=== PATIENT | female | born 1955 | race Caucasian/White ===

== ENCOUNTER → 2022-10-10 12:31 | Outpatient (CLI) | payer MEDICARE, SELFPAY ==
--- NOTE | ~2022-10-10 | DEXA_ITS ---
Bone Density Report Name: CHANDLER FIGUEROA Age: 66 Sex: Female Ethnicity: White Date of : 1955 Indication: postmenopausal; screening for osteoporosis; height loss; prior fracture; hysterectomy; Referring Provider: KEATON NAVARRO M.D. Study: Bone densitometry was performed. Exam Date: October 10, 2022 Accession number: [id number] Bone Density: Region BMD T-score Z-score Classification AP Spine (L1-L4) 1.100 0.5 2.3 Normal Femoral Neck (Left) 0.728 -1.1 0.5 Osteopenia Total Hip (Left) 0.784 -1.3 0.0 Osteopenia Femoral Neck (Right) 0.730 -1.1 0.5 Osteopenia Total Hip (Right) 0.817 -1.0 0.3 Normal Total Hip Mean 0.801 -1.2 0.2 Osteopenia World Health Organization criteria for BMD impression classify patients as: Normal (T-score at or above -1.0), Osteopenia (T-score between -1.0 and -2.5), or Osteoporosis (T-score at or below -2.5). 10-year Fracture Risk: FRAX not reported because: Prior hip or vertebral fracture Treated for osteoporosis Clinical Information Provided by Patient: Have had a previous hip or vertebral fracture Has had a low trauma fracture Is being treated for osteoporosis Has used the following medications: Evista (i.e. raloxifene), Vitamin D, Calcium, multivit Has the following medical conditions: Hysterectomy, IBS, no recent treatment Patient maximum height was 69 Menopause Age: 43 Drinks caffeinated beverages Onset of menses at age 14 Number of children 2 Impression: The patient has low bone mass, based on the Left Total Hip T-score. The patient has risk factors, including: previous fracture. Discussion: It is important to ask patients whether they are taking their medications and to encourage continued and appropriate compliance with their osteoporosis therapies to reduce fracture risk. It is also important to review their risk factors and encourage appropriate calcium and vitamin D intakes, exercise, fall prevention and other lifestyle measures. Follow-Up: Consider a repeat BMD and Vertebral Fracture Assessment (VFA) exam in 2 years or sooner if medically necessary, to reassess this patient's status. Reported by: MARIVEL on 10/10/2022 1:15:00 PM. Reviewed, dictated and finalized at location Annette CAMPBELL
--- NOTE | ~2022-10-10 | MM_ITS ---
EXAMINATION: MM screening jai BI w shira HISTORY: Screening mammogram TECHNIQUE: Craniocaudal and mediolateral oblique 3-D tomosynthesis images were obtained and synthetic 2-D images were generated. CAD analysis was submitted and interpreted. COMPARISON: No prior mammogram is available for comparison at this institution. BREAST PARENCHYMAL COMPOSITION: There are scattered areas of fibroglandular density. FINDINGS: Scattered occasional bilateral benign calcifications are noted. There is no evidence of carlo picious mass, calcification, or architectural distortion to suggest malignancy in either breast. Ther e has been no suspicious interval change. IMPRESSION: 1. No mammographic evidence of malignancy. 2. Recommend routine screening mammography in one year. BI-RADS Category 2: Benign finding(s). Reviewed, dictated and finalized at location A.
== END ==
DX: Z12.31 Encounter for screening mammogram for malignant neoplasm of breast (principal); Z78.0 Asymptomatic menopausal state; M85.89 Other specified disorders of bone density and structure, multiple sites
CPT/HCPCS: 77063; 77067; 77080

== ENCOUNTER 2023-03-21 06:16 | Day surgery (SDC) | payer MEDICARE, SELFPAY ==
[2023-02-28 10:25] VITALS: BMI 20.4
--- NOTE | 2023-03-21 07:29 | P.HP_ITS ---
History of Present Illness History of Present Illness Consent: Risks, benefits, and alternatives have been discussed and questions answered. Patient agrees to proceed with procedure. Chief complaint: Dysphagia Narrative: Jenny Belcher is a 67 year old female presents today for EGD. Patient reports she has had difficulty swallowing mid substernal portion of the chest. She states this happens more frequently with solid foods such as meat. It is intensified over the last 6 months. His advised her to take omeprazole which she takes perhaps 3 days out of the week. She also take will take Pepcid intermittently in [id number] Mylanta. Patient denied any weight loss or bleeding. She reports in the past she was told she had Sjogren's syndrome and Raynaud's phenomenon. Patient's family history is noncontributory. Review of Systems Review of Systems: Review of systems noncontributory. [facility] Social History Social History Smoking status: Never smoker Alcohol intake: current Drinks per week: 3 Substance use type: does not use Living arrangements: with family Spiritual care concerns: No Meds Home Medications and Allergies Home Medications Medication Instructions Recorded Confirmed Type sodium,potassium,mag sulfates 17.5 See Rx Instructions PO .COMPLEX 01/15/23 03/21/23 Rx gram-3.13 gram-1.6 gram oral soln #354 mL (Suprep Bowel Prep Kit) diltiazem HCl 60 mg 60 mg PO DAILY 02/28/23 03/21/23 History capsule,extended release 12 hr fluticasone propionate 50 1 spray intranasal PRN 02/28/23 03/21/23 History mcg/actuation nasal spray,suspension levothyroxine 100 mcg tablet 100 mcg PO DAILY 02/28/23 03/21/23 History lisinopril 20 mg tablet 20 mg PO BID 02/28/23 03/21/23 History metoprolol tartrate 50 mg tablet 50 mg PO BID 02/28/23 03/21/23 History multivitamin with minerals-folic 1 tablet PO DAILY 02/28/23 03/21/23 History acid 0.4 mg tablet raloxifene 60 mg tablet (Evista) 60 mg PO DAILY 02/28/23 03/21/23 History Allergies Allergy/AdvReac Type Severity Reaction Status Date / Time meperidine [From Demerol] AdvReac Hypotension Verified 03/21/23 07:10 Exam Narrative: Physical exam reveals patient to be alert. Vital signs stable. HEENT exam is unremarkable. Patient is anicteric. Lungs are clear to auscultation and percussion, heart is without murmur or extra sounds. Abdomen bowel sounds are present soft nontender with no organomegaly. Digital external rectal exam defer red at this time. Assessment and Plan Assessment and plan (1) Dysphagia: Code(s): R13.10 - Dysphagia, unspecified Status: Acute Assessment and Plan: She presents today with difficulty swallowing. Symptoms appear to be related to acid reflux. Food catches in mid substernal portion of the chest suggesting esophageal narrowing. Plan for EGD to assess more thoroughly. He may benefit dilatation. Long-term use of PPI taken on a daily basis is suggested. Elevating head of bed at night. No late snacks. She should avoid further recommendations may be given after endoscopy.
--- NOTE | 2023-03-21 07:58 | P.PNAN_ITS ---
Anes - Initial Pre Proc Eval Procedure: Operation Date: 03/21/23 08:30 Proposed Procedures p Esophagogastroduodenoscopy - Paresh Silva MD Date/Time: 03/21/23 07:58 Surgeon: Paresh Silva MD Pre Op Diagnosis: Dysphagia Patient Data Age: 67 Gender: F Height: 1.73 m Weight: 63.3 kg Allergies Allergy/AdvReac Type Severity Reaction Status Date / Time meperidine [From Demerol] AdvReac Hypotension Verified 03/21/23 07:10 Home Medications Medication Instructions Recorded Confirmed Type sodium,potassium,mag sulfates 17.5 See Rx Instructions PO .COMPLEX 01/15/23 03/21/23 Rx gram-3.13 gram-1.6 gram oral soln #354 mL (Suprep Bowel Prep Kit) diltiazem HCl 60 mg 60 mg PO DAILY 02/28/23 03/21/23 History capsule,extended release 12 hr fluticasone propionate 50 1 spray intranasal PRN 02/28/23 03/21/23 History mcg/actuation nasal spray,suspension levothyroxine 100 mcg tablet 100 mcg PO DAILY 02/28/23 03/21/23 History lisinopril 20 mg tablet 20 mg PO BID 02/28/23 03/21/23 History metoprolol tartrate 50 mg tablet 50 mg PO BID 02/28/23 03/21/23 History multivitamin with minerals-folic 1 tablet PO DAILY 02/28/23 03/21/23 History acid 0.4 mg tablet raloxifene 60 mg tablet (Evista) 60 mg PO DAILY 02/28/23 03/21/23 History Patient hx anesthesia problems: none Family hx anesthesia problems: none Results Review: All pre-operative results and documents have been reviewed as part of the pre- operative evaluation. [facility] Social History Social History Smoking status: Never smoker Alcohol intake: current Drinks per week: 3 Substance use type: does not use Living arrangements: with family Spiritual care concerns: No Anes - Eval Final PreProcedure Day of Procedure 03/21/23 07:58 Patient weight: normal Heart: regular rate and rhythm Lungs: clear to auscultation Airway: Mallampati scale class 1 Neurological: alert and oriented Last oral intake: >/= 8 hours ASA classification: III Emergent: no Anesthetic plan: proceed Anesthesia type and monitoring: general GIVS and standard monitoring Results Review: All pre-operative results and documents have been reviewed as part of the pre- operative evaluation. Informed Consent: The patient's anesthetic plan and its attendant risks and benefits were discussed with the patient/family/POA. Questions were solicited and answers provided to the satisfaction of the patient/family/POA.
[2023-03-21] MEDS: LACTATED RINGERS 1,000 ML 150 ML IV CONT (07:59)
[2023-03-21 08:47] VITALS: BP 127/70; PULSE 79; RESP 16; O2SAT 100
[2023-03-21 08:57] VITALS: BP 123/64; PULSE 74; RESP 16; O2SAT 100
[2023-03-21 09:07] VITALS: BP 118/82; PULSE 66; RESP 16; O2SAT 100
--- NOTE | 2023-03-21 09:24 | WPDANESPN ---
Anes - Prog Note Post-Op Date/Time: 03/21/23 09:24 Cardiovascular status: normal Respiratory status: normal Airway patency: baseline Mental status: baseline Post-Op hydration status: normal Vital Signs: Last Vital Signs Pulse 66 03/21/23 09:07 Resp 16 03/21/23 09:07 BP 118/82 03/21/23 09:07 Pulse Ox 100 03/21/23 09:07 O2 Del Method Room Air 03/21/23 09:07 Pain Score (VAS): 0 I/O: Intake & Output 03/20/23 03/21/23 03/21/23 23:59 07:59 15:59 Intake Total 600 Balance 600 Patient Feedback: Patient satisfied with anesthetic care.
== END 2023-03-21 09:14 | disposition home or self-care (01) ==
PROVIDERS: Visit Provider Internal Medicine Gastroenterology
PROC: 0DJ08ZZ Inspection of Upper Intestinal Tract, Via Natural or Artificial Opening Endoscopic (ICD-10-PCS; CPT 43235; principal; 2023-03-21 08:30)
DX: R13.19 Other dysphagia (principal); K21.00 Gastro-esophageal reflux disease with esophagitis, without bleeding; K22.2 Esophageal obstruction; K44.9 Diaphragmatic hernia without obstruction or gangrene
CPT/HCPCS: 43450; 43239

== ENCOUNTER 2023-09-27 14:43 | Outpatient (CLI) | payer MEDICARE, SELFPAY ==
--- NOTE | ~2023-09-27 | XR_ITS ---
EXAM: XR lumbar spine 2-3V DATE: 09/27/2023 15:10 HISTORY: LBP;SEVERE ARTHRITIS;SEVERE PAIN;SEVERE OA . COMPARISON: None available. FINDINGS: Decreased mineralization. Moderate scoliosis. 5 nonrib-bearing lumbar-type vertebral bodies . Pedicles intact. Normal vertebral body alignment. Vertebral body heights preserved. Multilevel mild and moderate degrees of disc space narrowing and marginal osteophytosis, most prominent at L2-3 and L3-4. Lower lumbar facet hypertrophy and sclerosis, interspinous narrowing at L4-5. Atherosclerotic a ortic calcification without evident aneurysm. No fracture or dislocation. IMPRESSION: Moderate scoliosis. Multilevel mild and moderate degenerative disc disease. Lower lumbar facet arthropathy. Reviewed, dictated and finalized at location K.
--- NOTE | ~2023-09-27 | XR_ITS ---
XR hip RT min 2V 09/27/2023 15:10 Indication: Right hip pain Procedure: 2 views right hip Comparison: No prior studies for comparison. Findings: No fracture, subluxation or dislocation. No significant soft tissue abnormality. No foreign bodies. Impression: 1: No acute bone or joint abnormality. Reviewed, dictated and finalized at location B. Impression: 1: No acute bone or joint abnormality.
== END 2023-09-27 14:44 | disposition home or self-care (01) ==
LOC: ANHIMG 14:46
DX: M51.36 Other intervertebral disc degeneration, lumbar region (principal); M47.896 Other spondylosis, lumbar region; M41.86 Other forms of scoliosis, lumbar region; M25.551 Pain in right hip
CPT/HCPCS: 72100; 73502

== ENCOUNTER 2024-05-11 15:40 | Outpatient (CLI) | payer MEDICARE, SELFPAY ==
--- NOTE | ~2024-05-11 | MM_ITS ---
EXAMINATION: MM screening jai BI w shira HISTORY: Screening mammogram TECHNIQUE: Craniocaudal and mediolateral oblique 3-D tomosynthesis images were obtained and synthetic 2-D images were generated. CAD analysis was submitted and interpreted. COMPARISON: 10/10/2022 BREAST PARENCHYMAL COMPOSITION:Dense: The breasts are extremely dense, which lowers the sensitivity o f mammography. FINDINGS: No suspicious mass, calcification, or architectural distortion are identified in either eliza ast to suggest malignancy. There has been no suspicious interval change. IMPRESSION: No mammographic evidence of malignancy. Recommend routine screening mammography in one year. BI-RADS Category 1: Negative Reviewed, dictated and finalized at location . LY COORDINATOR
== END 2024-05-11 15:41 | disposition home or self-care (01) ==
DX: Z12.31 Encounter for screening mammogram for malignant neoplasm of breast (principal)
CPT/HCPCS: 77063; 77067

== ENCOUNTER 2025-05-17 12:49 | Outpatient (CLI) | payer MEDICARE, SELFPAY ==
--- NOTE | ~2025-05-17 | MM_ITS ---
EXAMINATION: MM screening jai BI w shira HISTORY: Screening TECHNIQUE: Craniocaudal and mediolateral oblique 3-D tomosynthesis images were obtained and synthetic 2-D images were generated. CAD analysis was submitted and interpreted. COMPARISON: Comparison to multiple prior studies sequentially, with oldest reviewed study dated , 10/10/2022 BREAST PARENCHYMAL COMPOSITION: The breasts are heterogeneously dense, which may obscure small masses. FINDINGS: There is no evidence of suspicious mass, calcification, or architectural distortion to suggest malignancy in either breast. IMPRESSION: 1. No mammographic evidence of malignancy. 2. Recommend routine screening mammography in one year. BI-RADS Category 1: Negative Reviewed, dictated and finalized at location B. CTOR OF EVENTS
== END 2025-05-17 12:50 | disposition home or self-care (01) ==
DX: Z12.31 Encounter for screening mammogram for malignant neoplasm of breast (principal)
CPT/HCPCS: 77063; 77067